=== PATIENT | male | born 1955 | race Caucasian/White ===

== ENCOUNTER → 2017-06-03 | Outpatient (CLI) | payer BC ==
--- NOTE | 2017-06-03 12:40 | RAD ---
HISTORY: Abdominal pain Study: KUB Comparison: None Findings: The abdominal gas pattern is nonspecific and nonobstructive. No abnormal masses or abnormal calcifica tions are identified. The regional skeleton is intact. IMPRESSION: No significant abnormality identified Reported By:
== END ==
LOC: RAD 12:12
PROVIDERS: ATTEND Internal Medicine
DX: R31.9 Hematuria, unspecified (principal)
CPT/HCPCS: 74018

== ENCOUNTER → 2017-08-24 | Outpatient (CLI) | payer BC ==
--- NOTE | 2017-08-24 14:51 | RAD ---
Lumbar spine, AP, lateral, and obliques Indication: Mid back pain for a few months. No known injury. Comparison: None Findings: Lumbar spine alignment is normal. There is no evidence for acute cortical disruption or sig nificant vertebral body height loss. There is mild multilevel discogenic and facet degenerative disea se. No spondylolysis is observed on the oblique images. The SI joints are grossly normal. Impression: No acute osseous abnormality. Mild multilevel spondylosis. Reported By:
== END ==
LOC: RAD 14:12
PROVIDERS: ATTEND Internal Medicine
DX: M51.36 Other intervertebral disc degeneration, lumbar region (principal)
CPT/HCPCS: 72110